=== PATIENT | female | born 1980 | race Caucasian/White ===

== ENCOUNTER 2016-11-09 16:28 | Emergency (ER) | payer OTHER ==
[~2016-11-09] VITALS: Ht 162.6 cm; Wt 73.6 kg
[~2016-11-09 16:28] MED LIST: CYCL5TAB PO; OXYC5TAB72 PO
[2016-11-09 16:32] VITALS: BP 137/80; PULSE 78; RESP 16; O2SAT 100
[2016-11-09 17:40] LABS: Mean Corpuscular Hemoglobin 30.1 pg (27.0-35.0); Mean Corpuscular Volume 87.3 fL (81-100)
--- NOTE | 2016-11-09 18:01 | ED.REPORT ---
HPI- Female Date of Service Nov 09, 2016 ED Provider: Lio Knutson DO A 2 month 36 year old female with a history of miscarriage x1 presents to the ED due to vaginal bleeding. She was feeling nauseated while running errands today, and noticed vaginal bleeding when she got home. There were no clots at this point. The bleeding increased and has continued since this point. The pt is now experiencing abdominal cramping. She believes that her symptoms are due to a miscarriage. Nursing Notes Stated Complaint: 2MONTHS , MISCARRIAGE Chief Complaint: & Delivery Nursing Notes Reviewed: Yes Allergies: Coded Allergies: Penicillins (Verified Allergy, Severe, Anaphylaxis, 11/09/16) Scheduled PRN Cyclobenzaprine (Cyclobenzaprine) 5 Mg Tablet 5 MG PO TID PRN PRN Spasm oxyCODONE (oxyCODONE) 5 Mg Tablet 5 MG PO Q4H PRN PRN For Pain General Time Seen by MD: 18:01 Chief Complaint Vaginal bleeding... Hx Obtained From: Patient Arrived By: Walk-in Sudden in Onset?: Yes Onset Occurred: 5 - 8 hours ago Symptom Duration: Since onset Recent Healthcare: No recent hospitalization, Recent doctor visit Similar Sx Previous: Yes Past Medical History Past Medical History miscarriage x1 Past Surgical History none reported Smoking History Unknown if Ever Smoker Ambulatory Status Independent Review of Systems Constitutional: Denies: Fever GI: Reports: Abdominal pain, Nausea, Denies: Vomiting Female: Reports: Vaginal bleeding - abnl Musculoskeletal: Denies: Back pain Skin: Denies Rash Complete sys rev & neg: except as marked. Physical Exam Initial Vital Signs Vital Signs (First) Date Time Temp Pulse Resp B/P Pulse Ox O2 Delivery O2 Flow Rate FiO2 11/09/16 16:32 37.8 78 16 137/80 100 Room Air Initial VS: Reviewed Female Genitourinary: Exam deferred General/Constitutional: Awake, Alert Respiratory / Chest: Atraumatic, Breath sounds NL, Breath sounds = bilat, No respiratory distress Cardiovascular: Heart rate NL, Regular rhythm, Heart sounds NL Abdomen: Atraumatic, Soft suprapubic tenderness Back: Atraumatic, Full range of motion Skin: Atraumatic, Color NL, No rash, Warm, Dry Head / Eyes: Atraumatic, Normocephalic, PERRL, EOMI ENT: Atraumatic, Airway patent, Mucous membranes moist Neck: Atraumatic, Supple, Full range of motion Upper Extremity / MS: Atraumatic, Full range of motion Lower Extremity / Pelvis / MS: Atraumatic, Full range of motion Neurologic: Oriented X3, Speech NL, No motor deficits, No sensory deficits Psychiatric: Affect NL, Mood NL Interpretation & Diagnostics Interpretation & Diagnostics: Pelvic/Transvaginal US: CONCLUSION: Single living intrauterine gestation approximately 8 weeks and 4 days with a melany-gestational bleed measuring approximately 2.9 cm. There is a 2.5 cm fundal uterine leiomyoma. There is a 2 cm left ovarian cyst and a probable corpus luteum of the right ovary measuring 1.6 cm. Lab Results Interpretation Result Diagram: 11/09/16 1717 11/09/16 1634 Test 11/09/16 16:34 11/09/16 17:17 11/09/16 19:50 Sodium Level 136mEq/L (134-144) Potassium Level 3.4mEq/L (3.5-5.2) Chloride Level 99mEq/L (97-108) Carbon Dioxide Level 23mmol/L (18-29) Blood Urea Nitrogen 7mg/dL (6-20) Creatinine 0.60mg/dL (0.57-1.00) Estimat Glomerular Filtration Rate 160mL/min (>59) Glucose Level 112mg/dL (60-99) Calcium Level 8.9mg/dL (8.5-10.1) Total Bilirubin 0.2mg/dL (0.0-1.2) Aspartate Amino Transf (AST/SGOT) 12U/L (0-50) Alanine Aminotransferase (ALT/SGPT) 12U/L (0-32) Alkaline Phosphatase 45U/L (25-150) Total Protein 6.4g/dL (6.4-8.4) Albumin 4.2g/dL (3.4-5.0) HCG Beta Subunit [id number]/mL White Blood Count 11.7th/mm3 (3.8-10.1) Red Blood Count 4.42mil/mm3 (3.90-5.20) Hemoglobin 13.3g/dL (12.0-15.6) Hematocrit 38.6% (35.0-46.0) Mean Corpuscular Volume 87.3fL (81-100) Mean Corpuscular Hemoglobin 30.1pg (27.0-35.0) Mean Corpuscular Hemoglobin Concent 34.5% (32.0-37.0) Red Cell Distribution Width 13.3% (12.3-15.4) Platelet Count 306bil/L (150-400) Urine Color Yellow (YELLOW) Urine Appearance Hazy (CLEAR,HAZY) Urine pH 6.0 (5.0-8.0) Urine Specific [place] 1.010 (1.003-1.035) Urine Protein Negativemg/dL (NEG,TRACE) Urine Glucose (UA) Negativemg/dL (NEGATIVE) Urine Ketones Negativemg/dL (NEGATIVE) Urine Occult Blood Large (NEGATIVE) Urine Nitrite Negative (NEGATIVE) Urine Bilirubin Negative (NEGATIVE) Urine Urobilinogen Normalmg/dL (NORMAL) Urine Leukocyte Esterase Trace (NEGATIVE) Urine RBC 11-50/hpf (0-2) Urine WBC 6-10/hpf (0-5) Urine Epithelial Cells Few/hpf (NONE-MOD) Urine Crystals None seen (NONE SEEN) Urine Bacteria Few/hpf (NONE-FEW) Urine Hyaline Casts None/lpf (NONE) Urine Granular Casts None seen (NONE SEEN) Urine Waxy Casts None seen (NONE SEEN) Urine Red Blood Cell Casts None seen (NONE SEEN) Urine White Blood Cell Casts None seen (NONE SEEN) Urine Mucus Present (None Seen) Urine Trichomonas None seen (NONE SEEN) Urine Yeast None (NONE SEEN) Urinalysis Comment None Urine Culture Reflexed Indicated Hold Peace Top Tube Received (Received) Hold Red Top Tube Received (Received) Pulse Oximetry Interpretation Pulse Oximetry Interpretation: 100% on room air Pulse Oximetry: Pulse Ox normal US FAST Exam fetus present formal ultrasound indicated Exam Performed by: ED physician Exam Type: Diagnostic Exam Interpreted by: ED physician Re-Eval/Medical Decision Source of Hx: Old records Re-Evaluation/Progress #1: Time of Eval: 19:25 Patient Status: Condition improved Re-Evaluation/Progress Note: Pt rechecked, who is stable. US FAST exam is performed. Re-Evaluation/Progress #2: Time of Eval: 22:33 Patient Status: Condition improved Re-Evaluation/Progress Note: Pt rechecked, who is requesting discharge. She is informed of her diagnosis and the plan for discharge. The pt understands and agrees with the plan. All questions are addressed at this time. Counseled Regarding: Diagnosis, Lab results, Need for follow-up, When/why to return to ED Discharge & Departure Impression: Primary Impression: Threatened Disposition: Home Discharge Condition All VS Reviewed: Yes Condition: Stable Patient Instructions: Threatened Miscarriage (ED) Additional Instructions: Go home and rest. This includes pelvic rest. Do not have intercourse until you have been seen in follow up. Return to the emergency department if you use more than one pad per hour for over four hours. Call to follow up with OB tomorrow. Take 1-2 Percocet every 6 hours as needed for severe pain. Do not drive, drink alcohol, or consume acetaminophen while taking the Percocet. Take Benadryl as directed for nausea. Return to the emergency department if you develop any new or worsening symptoms. Referrals: OTHER,PHYSICIAN (PCP) Adele Sumner MD Attestation Portions of this note were transcribed by Dax Stacy. I, Dr. Knutson personally performed the history, physical exam and medical decision-making; I reviewed and confirmed the accuracy of the information in the transcribed note. Signed by: Eladio Capellan, 11/09/2016 and [id number]. copies to: Adele Sumner MD, Todd P DO Nov 09, 2016 18:01 DAX STACY Nov 09, 2016 18:49
[2016-11-09 18:19] LABS: APPEARANCE,URINE HAZY (CLEAR,HAZY); COLOR,URINE YELLOW (YELLOW)
[2016-11-09 18:20] LABS: OCCULT BLOOD,URINE LARGE (NEGATIVE); UROBILINOGEN,URINE NORMAL (NORMAL)
[2016-11-09] MEDS ORDERED: HYDROmorphone 0.5 mg/0.5 mL iSecure Syringe IVPUSH PRN (19:25)
[2016-11-09] MEDS ORDERED: Ondansetron 2 mg/mL 2 mL Inj IVPUSH PRN (19:25)
[2016-11-09] MEDS ORDERED: _oxyCODONE/APAP 5-325 mg Tablet PO PRN (22:35)
[2016-11-09 23:00] VITALS: BP 126/77; PULSE 70; RESP 18; O2SAT 95
--- NOTE | 2016-11-10 09:02 | DRSVH ---
PROCEDURE: US OB<14 WKS+OB TRANSVAG INDICATIONS: bleeding and pain OUTSIDE/PRIOR DATING DATA: First dating scan (date and location): 11/09/16. Estimated date of delivery (MASSIEL) from first dating scan: 06/17/17. TECHNIQUE: Real-time scanning was performed of the fetus and maternal pelvic organs, with image documentation. Endovaginal scanning was also performed to better visualize the fetus and maternal ovaries. COMPARISON: None. FINDINGS: Embryo: [employer] Ultrasound Procedure Report Early G[facility] Rump Length: 2.00 cm Gestational Age (CRL): 8 weeks, 4 days Summary Fetus Summary Heart Rate: 164 bpm Comments: A normal yolk sac is noted. Small perigestational site bleed site measuring 2.9 x 1.3 x 2 .3 cm Measurement variability in dating: +/- 4 weeks by LMP, +/- 7 days by mean sac diameter (use before 6 weeks gestation if crown-rump length not able to be measured), +/- 5 days by crown-rump length (6-12 weeks gestation). Maternal organs: Ovaries within normal limits, with roughly 1.6 cm right corpus luteal cyst. Limite d images through the kidneys demonstrate no hydronephrosis. IMPRESSION: 1. 8 week 4 day single living IUP. 2. Small perigestational site bleed site. Note: These findings are concordant with the preliminary interpretation. Dictated by: Jadon Jackson [facility] Interpreted: Sawyer Mann MD on 11/10/2016 at 8:58 Transcribed by: DREW on 11/10/2016 at 9:01 Approved by: Sawyer Mann M.D. on 11/10/2016 at 16:21
== END 2016-11-09 23:01 | disposition home or self-care (01) ==
LOC: SED 16:28
DX: O20.0 Threatened abortion (principal); Z3A.08 8 weeks gestation of pregnancy; Z88.0 Allergy status to penicillin
CPT/HCPCS: 36415; 76801; 76817; 80053; 81000; 84702; 85027; 87086; 87088; 96374; 96375; 99285; J1170; J2405

== ENCOUNTER 2017-03-27 13:45 | Emergency (ER) | payer OTHER ==
[~2017-03-27] VITALS: Ht 162.6 cm; Wt 90.0 kg
[2017-03-27 13:57] VITALS: BP 107/82; PULSE 76; RESP 18; O2SAT 95
[2017-03-27] MEDS ORDERED: IBUP800T28 PO (15:47)
[2017-03-27] MEDS ORDERED: OXYC5CAP4 PO (15:47)
[2017-03-27] MEDS ORDERED: CYCL5TAB PO (15:47)
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
[2017-03-27 19:09] LABS: BASOPHILS % (AUTO) 0.5 % (0-3); EOSINOPHILS % (AUTO) 2.7 % (0-5); MONOCYTES % (AUTO) 7.4 % (4-12); Mean Corpuscular Hemoglobin 29.7 pg (27.0-35.0); Mean Corpuscular Volume 85.9 fL (81-100); NEUTROPHILS % (AUTO) 45.6 % (40-74); Platelet Count 337 bil/L (150-400)
[2017-03-27 19:30] LABS: INR 0.98 ratio
[2017-03-27 19:37] LABS: TROPONIN T < 0.010 ug/L (0.0-0.011)
--- NOTE | 2017-03-27 20:43 | DRSVH ---
PROCEDURE: CT ANGIO CHEST PULMONARY EMBOLISM ([id number]) INDICATIONS: CP radiating to back like knife; aort diss, ?PE TECHNIQUE: After the administration of intravenous contrast, 2 mm thick sections acquired from the pulmonary api nagi to the posterior costophrenic angles. 3-dimensional maximum intensity projection (MIP) coronal a nd sagittal reformats were then acquired through the thorax. For radiation dose reduction, the follo wing was used: automated exposure control, adjustment of mA and/or kV according to patient size. COMPARISON: None. FINDINGS: Image quality: Excellent. Pulmonary arteries: Pulmonary arteries are normal in size, and demonstrate no intraluminal filling d efects to suggest central pulmonary embolism. Lungs and pleura: Lungs are clear. No pleural effusions or pneumothorax. Central and peripheral ai rways are patent. Mediastinum: Heart size is normal, without pericardial effusion. No mediastinal or hilar adenopathy . Thoracic aorta is normal in caliber and enhancement. Esophagus is normal in caliber, without hiat al hernia. Bones and chest wall: No suspicious bony lesions. Ribs and thoracic spine appear intact throughout. Thyroid gland is unremarkable. No axillary or supraclavicular adenopathy. Abdomen: Visualized upper abdominal solid organs appear normal in the early arterial phase of enhanc ement. IMPRESSION: No acute pulmonary embolus. Dictated by: Fidelia Rainey M.D. on 03/27/2017 at 20:38 Approved by: Fidelia Rainey M.D. on 03/27/2017 at 20:41
[2017-03-27 20:52] VITALS: BP 112/84; PULSE 72; RESP 17; O2SAT 96
[2017-03-27 21:29] VITALS: BP 138/87; PULSE 59; RESP 16; O2SAT 98
== END 2017-03-27 21:29 | disposition home or self-care (01) ==
LOC: SED 13:45
DX: M54.6 Pain in thoracic spine (principal); R07.9 Chest pain, unspecified; E11.9 Type 2 diabetes mellitus without complications; I25.10 Atherosclerotic heart disease of native coronary artery without angina pectoris; F17.200 Nicotine dependence, unspecified, uncomplicated; Z88.0 Allergy status to penicillin; Z88.5 Allergy status to narcotic agent; Z88.6 Allergy status to analgesic agent
CPT/HCPCS: 36415; 71275; 80053; 83735; 84484; 85025; 85610; 85730; 93005; 99285; Q9967